=== PATIENT | female | born 1950 | race Caucasian/White ===

== ENCOUNTER 2017-10-14 09:55 | Outpatient (CLI) | payer OTHER | END 2017-10-14 10:17 | disposition home or self-care (01) | LOC: NUCLEAR 09:55 | DX: E21.0 Primary hyperparathyroidism (principal) | CPT/HCPCS: 78072; A9500 ==

== ENCOUNTER 2018-02-03 07:29 | Day surgery (SDC) | payer OTHER ==
[~2018-02-03 07:29] MED LIST: COZAAR50 MG PO; PEPCID40 MG PO
[2018-02-03] MEDS ORDERED: PERCOCET 5-3251 EACH PO (14:36)
== END 2018-02-03 18:45 | disposition home or self-care (01) ==
LOC: CIR.AMB 07:29
DX: E21.0 Primary hyperparathyroidism (principal)